=== PATIENT | female | born 1965 | race Caucasian/White ===

== ENCOUNTER → 2017-02-15 | Outpatient (CLI) | payer BC ==
[~2017-02-15] MED LIST: FENTANYL PF 100 MCG/2ML ONE; FLUMAZENIL 0.1 MG/1 ML, 5ML ONE; GADOBUTROL 10 MMOL/10 ML PFS ONE; MIDAZOLAM 1 MG/ML, 5ML ONE; NALOXONE 1 MG/ML, 2ML ONE
== END | disposition home or self-care (01) ==
LOC: RAD 10:10
PROVIDERS: ATTEND Internal Medicine
DX: G93.89 Other specified disorders of brain (principal); I65.22 Occlusion and stenosis of left carotid artery
CPT/HCPCS: 70553; A9585; J2250; J3010; 99156; 99157; J2310